=== PATIENT | female | born 1985 | race Two or more races ===

== ENCOUNTER 2017-08-15 05:28 | Day surgery (SDC) | payer MEDICARE ==
[~2017-08-15] VITALS: Ht 172.7 cm; Wt 78.5 kg
[2017-08-15] VITALS (9 sets, daily range): BP systolic 119–139; BP diastolic 61–83
[2017-08-15] MEDS ORDERED: BUPROPION XL300 MG ORAL (06:02)
[2017-08-15] MEDS ORDERED: TESTOSTERO100 MG/1 M IM (06:02)
[2017-08-15] MEDS ORDERED: VYVANSE70 MG ORAL (06:02)
[2017-08-15] MEDS ORDERED: LAMICTAL150 MG ORAL (06:02)
[2017-08-15] MEDS ORDERED: ABILIFY15 MG ORAL (06:02)
[2017-08-15] MEDS ORDERED: ceFAZolin sod 1 GM in NS 55 ML IVPB ONE (07:00)
[2017-08-15] MEDS ORDERED: EPINEPHrine 1mg/1ml Amp ONE (07:04)
[2017-08-15] MEDS ORDERED: Bacitracin Oint 15gm Tube TOPIC ONE (07:04)
[2017-08-15] MEDS ORDERED: Muri-Lube ONE (07:04)
[2017-08-15] MEDS ORDERED: Lidocaine 1% 10mg/ml/EPI 0.01mg/ml 50ml INJ ONE (07:04)
[2017-08-15] MEDS ORDERED: Dyna-Hex 2% Top Sol 2oz TOPIC ONE (07:05)
--- NOTE | 2017-08-15 07:20 | Anethesia Preoperative Eval ---
Anesthesia Pre-op PMH/ROS General Date of Evaluation: Aug 15, 2017 Time of Evaluation: 07:21 Anesthesiologist: Amanda ASA Score: ASA 2 Mallampati Score Class I : Soft palate, uvula, fauces, pillars visible Class II: Soft palate, uvula, fauces visible Class III: Soft palate, base of uvula visible Class IV: Only hard plate visible Mallampati Classification: Class II Surgeon: Brett Diagnosis: Gender Dysphoria Surgical Procedure: Bilateral Mastectomy Anesthesia History: none Family History: no anesthesia problems Allergies: Coded Allergies: No Known Allergies (Unverified , 08/14/17) Medications: see eMAR Past Medical History Pulmonary: Reports: asthma Neurologic/Psychiatric: Reports: depression/anxiety Anesthesia Pre-op Phys. Exam Physician Exam Last Vital Signs Date Time Temp Pulse Resp B/P (MAP) Pulse Ox O2 Delivery O2 Flow Rate FiO2 08/15/17 06:05 97.4 68 20 119/61 100 Room Air 97.4 Constitutional: NAD Neurologic: CN 2-12 intact Cardiovascular: RRR Respiratory: CTA Gastrointestinal: S/NT/ND Airway Exam Mallampati Score: Class II MO: full ROM: full Teeth: intact Anesthesia Pre-op A/P Labs Urine Test Test 08/15/17 05:40 Urine HCG, Qualitative Negative (NEGATIVE) Risk Assessment & Plan Assessment: ASA 2 Plan: GA, BIS Status Change Before Surgery: No Pre-Antibiotics Dru Grams Ancef IV Given Within 1 Hr of Incision: Yes Time Given: 07:41 Chandler Patel MD Aug 15, 2017 07:20
[2017-08-15] MEDS ORDERED: Lidocaine 1% Plain 30 ml INJ ONE ×3 (07:22→10:47)
--- NOTE | 2017-08-15 07:22 | Pre-Procedure Note/Attestation ---
Pre-Procedure Note/Attestation Complete Prior to Procedure Planned Procedure: bilateral Indications for Procedure Pre-Operative Diagnosis: gender dysphoria Attestation I attest that I discussed the nature of the procedure; its benefits; risks and complications; and alternatives (and the risks and benefits of such alternatives ), prior to the procedure, with the patient (or the patient's legal veterans contact representative). I attest that, if there was a reasonable possibility of needing a blood transfusion, the patient (or the patient's legal veterans contact representative) was given the [facility] standardized written summary, pursuant to the [place] Blood Safety Act ([place] Health and Safety Code # 1645, as amended). I attest that I re-evaluated the patient just prior to the surgery and that there has been no change in the patient's H&P, except as documented below: John West MD Aug 15, 2017 07:22
[2017-08-15] MEDS ORDERED: Sodium Chloride 10ml vial INJ ONE ×2 (07:25→11:20)
[2017-08-15] MEDS ORDERED: Dexamethasone 4mg/ml vial ONE (07:25)
[2017-08-15] MEDS ORDERED: Lidocaine 1% MPF 10mg/ml 5ml ONE (07:25)
[2017-08-15] MEDS ORDERED: fentaNYL 100 mcg/2 mL IV PRN (07:30)
[2017-08-15] MEDS ORDERED: LR 1000ml ONE (07:30)
[2017-08-15] MEDS ORDERED: NS Irrig 1000ml ONE (07:30)
[2017-08-15] MEDS ORDERED: Sterile Water Irrig 1000ml IRRIG ONE (07:30)
[2017-08-15] MEDS ORDERED: Propofol 1,000mg/ 100ml btl IV ONE (07:30)
[2017-08-15] MEDS ORDERED: Acetaminophen (Non formulary) 100 ML IV ONE (07:30)
[2017-08-15] MEDS ORDERED: HYDROcodone/Acetamin 7.5/325 tab ORAL PRN (07:31)
[2017-08-15] MEDS ORDERED: Hydromorphone 0.5mg/0.5ml inj IVP PRN (07:31)
[2017-08-15] MEDS ORDERED: fentaNYL 100 mcg/2 mL IV ONE ×2 (07:31→10:39)
[2017-08-15] MEDS ORDERED: Norco 5mg/325mg tab ORAL PRN ×2 (07:31→16:01)
[2017-08-15] MEDS ORDERED: DiphenhydrAMINE 50mg/ml Inj IVP PRN (07:32)
[2017-08-15] MEDS ORDERED: Atropine Inj 1mg/10ml Syr IV PRN (07:32)
[2017-08-15] MEDS ORDERED: Ketorolac 30mg Inj IV PRN ×2 (07:32→07:33)
[2017-08-15] MEDS ORDERED: Metoclopramide 10mg/2ml Inj IVP PRN (07:33)
[2017-08-15] MEDS ORDERED: LORazepam Inj 2mg/ml 1ml IV PRN (07:33)
[2017-08-15] MEDS ORDERED: Labetalol 5mg/ml 20ml vial IV PRN (07:33)
[2017-08-15] MEDS ORDERED: oxyCODONE HCL/Acetaminophen 5/325mg ORAL PRN (07:34)
[2017-08-15] MEDS ORDERED: Midazolam 2mg/2ml Inj IVP PRN (07:34)
--- NOTE | 2017-08-15 07:54 | Immediate Post-Op Evaluation ---
Immediate Post-Op Evalulation Immediate Post-Op Evalulation Procedure: Bilateral Mastectomy Date of Evaluation: Aug 15, 2017 Time of Evaluation: 12:25 IV Fluids: 800 LR Blood Products: 0 Estimated Blood Loss: 27 Urinary Output: 0 Blood Pressure Systolic: 139 Blood Pressure Diastolic: 78 Pulse Rate: 83 Respiratory Rate: 16 O2 Sat by Pulse Oximetry: 100 Temperature (Fahrenheit): 97.6 Pain Score (1-10): 2 Nausea: No Vomiting: No Complications 0 Patient Status: awake, reacts, patent, extubated, none Hydration Status: adequate Dru Grams Ancef IV Given Within 1 Hr of Incision: Yes Time Given: 07:41 Chandler Patel MD Aug 15, 2017 07:54
--- NOTE | 2017-08-15 07:56 | 48 Hour Post Anesthesia Eval ---
Post Anesthesia Evaluation Procedure: Bilateral Mastectomy Date of Evaluation: Aug 15, 2017 Time of Evaluation: 14:34 Blood Pressure Systolic: 126 0: 78 Pulse Rate: 82 Respiratory Rate: 18 Temperature (Fahrenheit): 98.4 O2 Sat by Pulse Oximetry: 100 Airway: patent Nausea: No Vomiting: No Pain Intensity: 2 Hydration Status: adequate Cardiopulmonary Status: Stable Mental Status/LOC: patient returned to baseline Follow-up Care/Observations: 0 Post-Anesthesia Complications: 0 Follow-up care needed: ready to discharge Chandler Patel MD Aug 15, 2017 07:56
[2017-08-15] MEDS: Bupivacaine 0.25% Inj 30ml INJ ONE ×2 (08:00→09:00)
[2017-08-15] MEDS ORDERED: LR 1000ml 1,000 ML IVLG SCH (09:00)
[2017-08-15] MEDS ORDERED: Propofol 200mg/20ml IV ONE (10:48)
[2017-08-15] MEDS ORDERED: Naloxone 0.4mg/ml Inj ONE (11:59)
--- NOTE | 2017-08-15 12:04 | Operative Note - PDOC ---
Operative Note Operative Note Date of Operation/Procedure: Aug 15, 2017 Pre-op Diagnosis: gender dysphoria Procedure: bilateral mastectomy with nipple areola graft Post-op Diagnosis: same as pre-op Surgeon: Brett Anesthesiologist: Amanda Anesthesia: general Specimen: yes - 1) right breast, 2) left breast Complications: none Condition: stable Estimated Blood Loss: volume - 50 cc Drains: VANITA - x2 Implant(s) used?: No John West MD Aug 15, 2017 12:04
--- NOTE | 2017-08-15 12:05 | Discharge Instructions ---
Discharge Instructions Discharge Instructions Follow up with: Dr West August 20 11:30 am Diet: regular Resume Normal Activity?: Yes Activity: up ad jagjit, ambulate For Surgical Patients Dressing Care: keep dry and clean May shower: No For Congestive Heart Failure Reminder Report to your physician any weight gain of 5 pounds or more in one week. John West MD Aug 15, 2017 12:05
[2017-08-15] MEDS ORDERED: D5 1/2NS 1,000 ML IV SCH (16:01)
[2017-08-15] MEDS ORDERED: Tylenol #3 tab (300mg/30mg) ORAL PRN (16:01)
--- NOTE | 2017-08-15 17:15 | Operative Note - Dictated ---
DATE OF OPERATION: 08/15/2017 PREOPERATIVE DIAGNOSIS: Gender dysphoria. POSTOPERATIVE DIAGNOSIS: Gender dysphoria. PROCEDURE: 1. Bilateral subcutaneous mastectomy. 2. Bilateral nipple areolar reconstruction with free nipple areolar full-thickness grafts (each graft 2.5 x 2.5 centimeters). SURGEON: John West M.D. ANESTHESIA: General. ESTIMATED BLOOD LOSS: 50 mL. SPECIMENS: 1. Right breast. 2. Left breast. DRAINS: A 15-Italian Stef x2. COMPLICATIONS: None. CONDITION: To recovery room, stable. INDICATION FOR PROCEDURE: This is a very pleasant 32-year-old trans male who desires top surgery mastectomy as part of his transition. He has the requisite letter of recommendation from his mental health therapist and meets all WPATH criteria for top surgery. I have discussed the risks, benefits, and alternatives of the procedure with him including, but not limited to, bleeding, infection, scarring, nerve injury, asymmetry, contour deformity, hematoma, seroma, loss of nipple sensation, loss of nipple graft and need for additional surgery including revisions. I discussed the orientation of the incisions and the unpredictable nature of scarring. No guarantees were made regarding the outcome. All of his questions have been answered to the best of my ability. He verbalized understanding with everything that we discussed and wishes to proceed. DESCRIPTION OF PROCEDURE: The patient was identified in the preoperative holding area and marked in the standing position. He was then brought to the operating room where he was placed in the supine position on the operating room table with his arms extended on arm boards. All bony prominences were adequately padded. Sequential compression devices were placed and intravenous antibiotics were administered. After induction of anesthesia, the patient's chest was prepped and draped in sterile fashion. Starting on the left chest first, the nipple areola complex was placed on stretch and a cold springs measuring 2.5 centimeters in diameter was drawn centered around the nipple. Next, 1% lidocaine with epinephrine was used to infiltrate the subdermal plane and a total of 3 mL was used. I then used a 15 blade scalpel to harvest a full-thickness nipple areola composite graft. I subsequently defatted the graft, wrapped it in wet gauze and placed it on the back table. I then made an inframammary fold incision using a 10 blade scalpel. Dissection proceeded down through the subcutaneous tissues and breast parenchyma until the pectoralis major fascia was reached. After this was done, I then made the superior skin incision using a 10 blade scalpel. Dissection proceeded down to the level of Sujata's fascia. Skin hooks were used to retract the skin and a plane of dissection was created between the subcutaneous tissue and breast parenchyma heading in a superior direction towards the level of the clavicle. After this was done, the breast tissue was then elevated off the pectoralis major fascia proceeding from a medial to lateral direction. The specimen was passed off the table. Hemostasis was achieved and the wound was irrigated with saline. A 15-Italian Stef drain was placed within the wound and brought out through a separate stab incision and secured using 2-0 silk suture. The skin was then temporarily reapproximated using skin holli. I shifted my attention to the contralateral side where the identical procedure was performed. The patient was then sat up on the operating room table and it appeared that he had very reasonable symmetry between the 2 sides of the chest. I then used a marking pen to draw the proposed location of the new nipple areola complex on each side and these markings were confirmed with direct measurement. He was then placed back in the supine position. The skin holli were removed on each side and then the Sujata's fascia layer was reapproximated with 0 Vicryl suture followed by 3-0 PDS suture for the dermal layer and a running 3-0 Monocryl suture for the skin. Next, each of the markings corresponding to the new location of the nipple areola complex were incised using a 15 blade scalpel and the intervening skin was de-epithelialized. Each of the full-thickness nipple areolar grafts were then brought onto the respective sides of the operating table and inset using a running 5-0 fast absorbing suture. Next, several 2-0 silk suture ties were placed around the periphery of each wound and a skin graft bolster was fashioned and secured into place over each nipple areola graft using the 2-0 silk ties. Next, 10 mL of 0.25% plain Marcaine were injected into the incision on each side for total of 20 mL. Sterile dressings were then applied. The patient tolerated the procedure well and was sent to the recovery room in stable condition. All instrument, sharp, and sponge counts were correct at the conclusion of the case. John West M.D. DR: HARPREET JOB#: [id number] CC: [email or web address]
== END 2017-08-15 14:00 | disposition home or self-care (01) ==
LOC: EDSEX 05:28 → SUR 05:28
DX: F64.9 Gender identity disorder, unspecified (principal); F32.9 Major depressive disorder, single episode, unspecified; F41.9 Anxiety disorder, unspecified
CPT/HCPCS: 19303; 19350; 81025; J0690; J1100; J1885; J2001; J2250; J2310; J2405; J2704; J2765; J3010; J3490; J7120; 94003; 94150